=== PATIENT | female | born 1980 | race Caucasian/White ===

== ENCOUNTER 2019-02-04 16:14 | Emergency (ER) | payer MEDICAID ==
[~2019-02-04] VITALS: Ht 157.5 cm; Wt 62.4 kg
[~2019-02-04 16:14] MED LIST: CEPH-443 PO
[2019-02-04 16:36] VITALS: Ht 157.5 cm; Wt 62.4 kg
[2019-02-04 18:45] VITALS: BP 120/80; PULSE 70; RESP 17
== END 2019-02-04 18:45 | disposition home or self-care (01) ==
LOC: FTE 16:14
DX: O20.9 Hemorrhage in early pregnancy, unspecified (principal); Z3A.01 Less than 8 weeks gestation of pregnancy
CPT/HCPCS: 36415; 76801; 76817; 81001; 84702; 85025; 86900; 86901; Z7502